=== PATIENT | male | born 1995 | race African-American/Black ===

== ENCOUNTER 2020-01-19 | Emergency (ER) | payer SELFPAY ==
[~2020-01-19] MED LIST: (None)3.5 GM OP; AUGMENTIN400 MG OR; CEPHALEXIN500 MG PO; FLOXIN OTIC OT; GENTAMICIN15 ML/BTL OP; PERCOCET 5/325M1 TAB OR
== END 2020-01-19 12:56 | disposition home or self-care (01) | DRG 605 ==
DX: S60.011A Contusion of right thumb without damage to nail, initial encounter (principal); W23.0XXA Caught, crushed, jammed, or pinched between moving objects, initial encounter

== ENCOUNTER 2022-11-06 20:49 | Emergency (ER) | payer SELFPAY ==
[~2022-11-06] VITALS: Ht 193 cm; Wt 123.0 kg
[~2022-11-06 20:49] MED LIST changes: +AMOX/K CLAV875 M1 PO; +FLOXIN OTIC0.3 % AU
[2022-11-06 21:00] VITALS: BP 151/113
[2022-11-06 21:02] VITALS: BP 116/79
[2022-11-06 21:16] VITALS: BP 116/85
[2022-11-06 21:38] VITALS: BP 116/85
== END 2022-11-06 21:38 | disposition home or self-care (01) | DRG 156 ==
LOC: ED 20:49
DX: T16.2XXA Foreign body in left ear, initial encounter (principal); H61.22 Impacted cerumen, left ear; H92.02 Otalgia, left ear

== ENCOUNTER 2022-11-19 20:09 | Emergency (ER) | payer SELFPAY ==
[~2022-11-19] VITALS: Ht 193 cm; Wt 122.7 kg
[2022-11-19 20:24] VITALS: BP 128/91
[2022-11-19 20:30] VITALS: BP 128/87
[2022-11-19] MEDS ORDERED: CORTISPORIN OTI10 M2 AD (20:40)
[2022-11-19 20:45] VITALS: BP 126/87
[2022-11-19 20:51] VITALS: BP 128/87
== END 2022-11-19 20:52 | disposition home or self-care (01) | DRG 156 ==
LOC: ED 20:09
DX: H60.91 Unspecified otitis externa, right ear (principal)